=== PATIENT | female | born 1960 | race Caucasian/White ===

== ENCOUNTER 2018-11-03 11:38 | Emergency (ER) | payer BC ==
[2018-11-03] MEDS ORDERED: Acetaminophen/HYDROcodone 325-10 MG Tab PO ONE (11:56)
[2018-11-03] MEDS ORDERED: HYDROmorphone 1 MG/ML Syringe IVPUSH ONE (12:16)
[2018-11-03] MEDS ORDERED: Sodium Chloride 0.9% 10 ML Syringe FLUSH PRN (12:16)
[2018-11-03] MEDS ORDERED: Ondansetron 4 MG/2 ML SDV IV ONE (12:16)
--- NOTE | 2018-11-03 12:37 | EDM.PDOC ---
Scribed by Florecita Millan 11/03/18 1237 for Denis Cole MD ED HPI GENERAL MEDICAL PROBLEM - General Chief Complaint: Lower Extremity Injury/Pain Stated Complaint: UNKNOWN-AMBULANCE Time Seen by Provider: 11/03/18 11:43 Source of Information: Reports: Patient, EMS, EMS Notes Reviewed, Family, RN, RN Notes Reviewed History Limitations: Reports: No Limitations - History of Present Illness INITIAL COMMENTS - FREE TEXT/NARRATIVE: Patient presents to ER by [facility] while working at [employer]. She complains of pain in her left leg at the knee and distal thigh. Denies any other injury. History of left total knee replacement by Dr. Gao in [place] approximately 6 years ago. Onset: Today Duration: Constant Location: Reports: Lower Extremity, Left Quality: Reports: Ache Severity: Severe Improves with: Reports: None Worsens with: Reports: None Associated Symptoms: Reports: No Other Symptoms - Related Data Allergies Allergy/AdvReac Type Severity Reaction Status Date / Time No Known Allergies Allergy Verified 11/03/18 12:34 Past Medical History Endocrine/Metabolic History: Reports: Obesity/BMI 30+ - Past Surgical History Musculoskeletal Surgical History: Reports: Knee Replacement (left) Social & Family History - Family History Family Medical History: Noncontributory - Tobacco Use Smoking Status *Q: Never Smoker - Alcohol Use Alcohol Use History: No - Recreational Drug Use Recreational Drug Use: No - Living Situation & Occupation Living situation: Reports: , with Family Occupation: Employed Review of Systems - Review of Systems Review Of Systems: ROS reveals no pertinent complaints other than HPI. ED EXAM, GENERAL - Physical Exam Exam: See Below Exam Limited By: No Limitations General Appearance: Alert, WD/WN, No Apparent Distress, Obese Eye Exam: Bilateral Eye: EOMI, Normal Inspection, PERRL Ears: Normal External Exam, Normal Canal, Hearing Grossly Normal, Normal TMs Nose: Normal Inspection, Normal Mucosa, No Blood Throat/Mouth: Normal Inspection, Normal Lips, Normal Teeth, Normal Gums, Normal Oropharynx, Normal Voice, No Airway Compromise Head: Atraumatic, Normocephalic Neck: Normal Inspection, Supple, Non-Tender, Full Range of Motion Respiratory/Chest: No Respiratory Distress, Lungs Clear, Normal Breath Sounds, No Accessory Muscle Use, Chest Non-Tender Cardiovascular: Normal Peripheral Pulses, Regular Rate, Rhythm, No Edema, No Gallop, No JVD, No Murmur, No Rub Peripheral Pulses: 2+: Posterior Tibial (L), Posterior Tibial (R), Dorsalis Pedis (L), Dorsalis Pedis (R) GI/Abdominal: Normal Bowel Sounds, Soft, Non-Tender, No Organomegaly, No Distention, No Abnormal Bruit, No Mass (Female) Exam: Deferred Rectal (Female) Exam: Deferred Back Exam: Normal Inspection, Full Range of Motion, NT Extremities: No Pedal Edema, Normal Capillary Refill, Leg Pain (morbidly obese, left knee and distal thigh with no visible swelling, bruising or deformity. ), Limited Range of Motion (left knee) Neurological: Alert, Oriented, No Motor/Sensory Deficits Psychiatric: Normal Mood Skin Exam: Warm, Dry, Intact, Normal Color, No Rash Course - Vital Signs Last Recorded V/S: Last Vital Signs Temp 37.0 C 11/03/18 11:57 Pulse 66 11/03/18 11:57 Resp 16 11/03/18 11:57 BP 147/74 H 11/03/18 11:57 Pulse Ox 95 11/03/18 11:57 - Orders/Labs/Meds Orders: Active Orders 24 hr Category Date Time Status Insert Terry Catheter [Insert Urinary Catheter] [OM.PC] Care 11/03/18 12:14 Ordered Stat Peripheral IV Care [RC] . DIRECTED Care 11/03/18 12:16 Ordered Urinary Catheter Assessment [RC] ASDIRECTED Care 11/03/18 12:15 Ordered Knee 3V Lt [CR] Urgent Exams 11/03/18 11:56 Ordered Sodium Chloride 0.9% [Saline Flush] Med 11/03/18 12:16 Ordered 10 ml FLUSH ASDIRECTED PRN Peripheral IV Insertion Adult [OM.PC] Stat Oth 11/03/18 12:15 Ordered Medication Orders Sodium Chloride (Saline Flush) 10 ml FLUSH ASDIRECTED PRN PRN Reason: Keep Vein Open Meds: Medications Generic Name Dose Route Start Last Admin Trade Name Freq PRN Reason Stop Dose Admin Sodium Chloride 10 ml 11/03/18 12:16 Saline Flush FLUSH ASDIRECTED PRN Keep Vein Open Discontinued Medications Generic Name Dose Route Start Last Admin Trade Name Freq PRN Reason Stop Dose Admin Hydrocodone Bitart/Acetaminophen 1 tab 11/03/18 11:56 11/03/18 12:14 [place] 325-10 Mg PO 11/03/18 11:57 1 tab ONETIME ONE Administration Hydromorphone HCl 1 mg 11/03/18 12:16 Dilaudid IVPUSH 11/03/18 12:17 ONETIME ONE Ondansetron HCl 4 mg 11/03/18 12:16 Zofran IV 11/03/18 12:17 ONETIME ONE - Radiology Interpretation Free Text/Narrative:: X-ray of left knee: Angulated displaced dietal femur fracture. See rad report. Departure - Departure Time of Disposition: 12:26 Disposition: DC/Tfer to Acute Hospital 02 Condition: Fair Clinical Impression: Closed fracture of distal end of left femur Qualifiers: Encounter type: initial encounter Fracture morphology: other fracture Qualified Code(s): S72.492A - Other fracture of lower end of left femur, initial encounter for closed fracture - Discharge Information *PRESCRIPTION DRUG MONITORING PROGRAM REVIEWED*: Not Applicable *COPY OF PRESCRIPTION DRUG MONITORING REPORT IN PATIENT SAMUEL: Not Applicable Forms: ED Department Discharge, Interfacility Transfer EMTALA - My Orders Last 24 Hours: My Active Orders 11/03/18 11:56 Knee 3V Lt [CR] Urgent 11/03/18 12:14 Insert Terry Catheter [Insert Urinary Catheter] [OM.PC] Stat 11/03/18 12:15 Urinary Catheter Assessment [RC] ASDIRECTED Peripheral IV Insertion Adult [OM.PC] Stat 11/03/18 12:16 Peripheral IV Care [RC] . DIRECTED Sodium Chloride 0.9% [Saline Flush] 10 ml FLUSH ASDIRECTED PRN - Assessment/Plan Last 24 Hours: My Active Orders 11/03/18 11:56 Knee 3V Lt [CR] Urgent 11/03/18 12:14 Insert Terry Catheter [Insert Urinary Catheter] [OM.PC] Stat 11/03/18 12:15 Urinary Catheter Assessment [RC] ASDIRECTED Peripheral IV Insertion Adult [OM.PC] Stat 11/03/18 12:16 Peripheral IV Care [RC] . DIRECTED Sodium Chloride 0.9% [Saline Flush] 10 ml FLUSH ASDIRECTED PRN I have read and agree with the documentation that has been completed regarding this visit. By signing this record, I attest that the documentation was completed in my physical presence and is an accurate record of the encounter.
== END 2018-11-03 14:32 ==
LOC: DL.ED 11:38
DX: S72.492A Other fracture of lower end of left femur, initial encounter for closed fracture (principal); E66.9 Obesity, unspecified; X58.XXXA Exposure to other specified factors, initial encounter
CPT/HCPCS: 51702; 73562; 96374; 96375; 99284; A9270; J1170; J2405

== ENCOUNTER 2023-08-17 16:39 | Emergency (ER) | payer BC, OTHER | END 2023-08-17 17:45 | disposition home or self-care (01) | LOC: DL.ED 16:39 | DX: S61.011A Laceration without foreign body of right thumb without damage to nail, initial encounter (principal); I10 Essential (primary) hypertension; E66.9 Obesity, unspecified; Z79.899 Other long term (current) drug therapy; W26.8XXA Contact with other sharp object(s), not elsewhere classified, initial encounter; Y93.G3 Activity, cooking and baking | CPT/HCPCS: 12001; 99282; 99283 ==